=== PATIENT | female | born 1995 | race Caucasian/White ===

== ENCOUNTER 2016-09-20 21:47 | Emergency (ER) | payer OTHER ==
--- NOTE | 2016-09-20 22:15 | EDPHY ---
H & P Time Seen by Provider: 09/20/16 22:08 HPI/ROS: CHIEF COMPLAINT: Heart palpitations HISTORY OF PRESENT ILLNESS: This patient is a 21 year old female who presents to the Emergency Department complaining of intermittent episodes of heart palpitations and nausea. She increased her Mountainside dosage yesterday and approximately one hour after she took the increased dose of lithium, she developed palpitations and chest pain. Associated with nausea. This sensaiton recurred today after taking lithium. She describes the sensation in her chest as 1-minute episodes of heart racing with marked discomfort that subsides on its own in less than 1 minute. She has not identified any alleviating factors for these episodes. She also reports worsening exertional shortness of breath over the past several months and states that her calves get tight at times but feel normal today. Medical history includes bipolar disorder, obesity and ADHD, though she is not currently taking her Adderall. REVIEW OF SYSTEMS: Constitutional: No fever, no chills Eyes: No visual changes ENT: No sore throat Respiratory: +shortness of breath, no cough Cardiac: +chest pain Gastrointestinal: +nausea, no vomiting, no abdominal pain Genitourinary: No hematuria, no dysuria Musculoskeletal: +intermittent calf tightness Skin: No rash Neurological: No headache, no numbness, no weakness Psychiatric: No depression Past Medical/Surgical History: Bipolar disorder. ADHD. Social History: Parents at bedside. Smoking Status: Never smoked Physical Exam: General Appearance: Alert, pleasant, obese Eyes: Pupils equal and round, no conjunctival pallor or injection ENT, Mouth: Mucous membranes moist Neck: Normal inspection Respiratory: normal respiratory rate, Lungs are clear to auscultation Cardiovascular: Regular tachycardia Gastrointestinal: Abdomen is soft and non-tender Neurological: A&O, nonfocal, normal gait Skin: Warm and dry, no rash Extremities: Nontender, no pedal edema, negative Dianna's sign Psychiatric: Mood and affect normal Constitutional: Initial Vital Signs Temperature (C) 36.4 C 09/20/16 21:59 Heart Rate 110 H 09/20/16 21:59 Respiratory Rate 24 H 09/20/16 21:59 Blood Pressure 139/93 H 09/20/16 21:59 O2 Sat (%) 95 09/20/16 21:59 O2 Delivery Mode Room Air Allergies/Adverse Reactions: No Known Allergies Allergy (Unverified 09/20/16 22:03) Home Medications: Medication Instructions Recorded Lexapro 09/20/16 Mountainside Carbonate 09/20/16 Medical Decision Making - Diagnostics EKG Interpretation: EKG interpreted by me reveals: sinus tachycardia, rate 102; inferior Q waves. Imaging: Chest x-ray reviewed by me reveals no acute disease. ED Course/Re-evaluation: This patient presents with probable side effect from lithium, given the time frame of her symptoms. Will check lithium level to r/o toxicity. IV established. 1L IV NS for volume depletion and 4mg IV Zofran administered. Given sinus tachycardia and subacute SOB, will proceed with EKG, chest x-ray, and D-dimer. D-dimer is normal; I feel that I can safely exclude PE in this pt without risk factors for PE. d-dimer normal, I do not feel that further eval is indicated and that I can safely exclude PE. Mountainside level slightly high, as is creatinine. No prior creatinine for comparison in [facility] system. Feels better after IVF. Given that the pt was stable previously on prior dose of Mountainside, and the lithium level is only slightly high, I will have her skip her morning dose of lithium tomorrow, then resume lithium at prior lower dosage. She will f/u with her psychiatrist tomorrow. Differential Diagnosis: includes though not limited to ACS, PE, pneumonia, dysrhythmia, hypoxia, lithium toxicity - Data Points Laboratory Results: Laboratory Results 09/20/16 22:27 09/20/16 22:27 Medications Given: Discontinued Medications Sodium Chloride (Ns) 1,000 mls @ 0 mls/hr IV ONCE ONE PRN Reason: Wide Open Stop: 09/20/16 22:17 Last Admin: 09/20/16 22:31 Dose: 1,000 mls Ondansetron HCl (Zofran) 4 mg IVP EDNOW ONE Stop: 09/20/16 22:17 Last Admin: 09/20/16 23:00 Dose: 4 mg Departure - Departure Disposition: Home, Routine, Self-Care Clinical Impression: Medication side effect, Sinus tachycardia Condition: Fair Instructions: Mountainside (By mouth) Additional Instructions: Decrease your lithium dose to 1 tablet 3 times daily. Do not take the morning dose of lithium tomorrow. Have your creatinine rechecked. Follow-up with your psychiatrist tomorrow. Return for worsening symptoms or any concerns. Referrals: [facility] [Other] - As per Instructions Report Scribed for: Katherin Burton Report Scribed by: Jaimie Sevilla Date of Report: 09/20/16 Time of Report: 22:11 Physician Review and Approval Statement: 09/20/16 22:10 Portions of this note were transcribed by a nuclear medical tech. I personally performed a history, physical exam, medical decision making, and confirmed accuracy of information the transcribed note.
[2016-09-20] MEDS ORDERED: NS 1,000 ML IV ONE (22:16)
[2016-09-20] MEDS ORDERED: ONDANSETRON 4 MG/2 ML VIAL IVP ONE (22:16)
--- NOTE | 2016-09-20 22:19 | CPEKG ---
Heart Rate: 102 RR Interval: 588 P-R Interval: 144 QRSD Interval: 94 QT Interval: 344 QTC Interval: 449 P [place]: 68 QRS [place]: 62 T Wave [place]: 7 EKG Severity - BORDERLINE ECG - EKG Impression: SINUS TACHYCARDIA EKG Impression: INFERIOR Q WAVES, PROBABLY NORMAL VARIATION Electronically Signed By: Katherin Burton 20-Sep-2016 22:57:23
[2016-09-20 22:33] LABS: % IMMATURE GRANULYOCYTES 0.6 % (0.0-1.1); ADD DIFF? NO; ADD MORPH? NO; ADD SCAN? NO; ATYPICAL LYMPHOCYTE FLAG 0 (0-99); FRAGMENT RBC FLAG 0 (0-99); HEMATOCRIT 39.5 % (38.0-47.0); HEMOGLOBIN 13.2 g/dL (12.6-16.3); LEFT SHIFT FLG 0 (0-99); LIPEMIA HEMOLYSIS FLAG 80 (0-99); MEAN CELL HEMOGLOBIN 30.9 pg (27.9-34.1); MEAN CELL HEMOGLOBIN CONCENTR. 33.4 g/dL (32.4-36.7); MEAN CELL VOLUME 92.5 fL (81.5-99.8); MEAN PLATELET VOLUME 10.1 fL (8.7-11.7); PLATELET CLUMPS FLAG 0 (0-99); PLATELET COUNT 320 10^3/uL (150-400); RED BLOOD CELL COUNT 4.27 10^6/uL (4.18-5.33); RED CELL DISTRIBUTION WIDTH 13.2 % (11.5-15.2)
[2016-09-20 22:50] LABS: ANION GAP 14 mEq/L (8-16); CALCIUM 9.9 mg/dL (8.5-10.4); CARBON DIOXIDE 25 mEq/l (22-31); CHLORIDE 102 mEq/L (97-110); CREATININE 1.3 mg/dL (0.6-1.0); GLOMERULAR FILTRATION RATE 51; GLUCOSE 103 mg/dL (70-100); LITHIUM 1.4 mEq/L (0.6-1.2); POTASSIUM 3.9 mEq/L (3.5-5.2); SODIUM 141 mEq/L (134-144)
[2016-09-20 23:31] VITALS: BP 119/81; PULSE 104; RESP 16; TEMP 98.1; O2SAT 94
== END 2016-09-20 23:39 | disposition home or self-care (01) ==
DX: R00.0 Tachycardia, unspecified (principal); T43.595A Adverse effect of other antipsychotics and neuroleptics, initial encounter
CPT/HCPCS: 96374; J2405